=== PATIENT | female | born 1965 | race Caucasian/White ===

== ENCOUNTER 2018-02-15 09:43 | Outpatient (RCR) | payer MEDICAID, SELFPAY ==
--- NOTE | 2018-02-15 09:45 | COCO.VHC ---
New/Renewal Application Status: New Application Submitted?: Yes (01/31/18) Notes:: Patricia came in to apply for insurance because she is with out any. We applied online.
== END 2018-03-15 23:59 | disposition home or self-care (01) ==
LOC: COCO 09:43
PROVIDERS: PCP Internal Medicine; Visit Provider Internal Medicine

== ENCOUNTER 2025-01-22 08:50 | Outpatient (CLI) | payer MEDICAID, SELFPAY ==
--- NOTE | 2025-01-22 | DI.US_ITS ---
Exam(s) US PELVIS TRANSVAGINAL EXAM: US PELVIS TRANSVAGINAL CLINICAL HISTORY: pelvic mass,r19.00. TECHNIQUE: Transabdominal and transvaginal pelvic ultrasound was performed using standard protocol. COMPARISON: No exams were available for comparison FINDINGS: UTERUS: Position: Anteverted. Size: 5.7 long by 2.0 AP by 3.2 transverse cm Endometrium: Due to the size of the pelvic mass and displacement of the uterus, endometrial stripe cannot be well visualized in this patient. Cervix: Unremarkable. OVARIES: Distinct separate ovaries cannot be identified due to the large pelvic mass. CUL-DE-SAC: Free fluid: None. Other: There is a 9.0 x 8.3 x 9.7 cm cystic mass in the pelvis posterior to the uterus. There do appear to be some septations in the cyst along the left side. There is internal debris noted. There is no internal blood flow. IMPRESSION: 1. 9.0 x 8.3 x 9.7 cm complicated septated cystic pelvic mass. This may be ovarian in origin. Cystic ovarian neoplasm should be considered in this patient. MRI may be of use for further characterization. 2. Grossly unremarkable uterus. DATA REPOSITORY:
== END 2025-01-22 09:10 ==
LOC: DI 08:51
PROVIDERS: PCP Nurse Practitioner Family; Visit Provider Obstetrics & Gynecology
DX: R19.00 Intra-abdominal and pelvic swelling, mass and lump, unspecified site (principal)
CPT/HCPCS: 76830; 76856

== ENCOUNTER 2025-01-26 09:01 | Outpatient (REF) | payer MEDICAID, SELFPAY ==
--- NOTE | 2025-01-26 08:50 | PAPFT_PTH ---
PATIENT: Patricia Castellanos LOC: [facility] U#:[id number] AGE/SX: 59/F ROOM: RE01/26/[address]: Rosa Damon MD : 1965 BED: DIS: 01/26/2025 SPEC #: [id number] RECD: 01/26/25 11:41 STATUS: KAROLYNDon REBenjamin #: [id number] JOSÉ MIGUEL: 01/26/25 08:[address]: Rosa Damon DEPT: [facility] Cytology RECD BY: Jocelyn Guerra ENTERED: 01/26/25 11:41 SP TYPE: PAPFT OTHR DR: Sally Lancaster Tissues: 1 - CX/ENDOCX FOR PAP SMEARS Procedures: PAP THIN PREP/UVM Screening HPV DNA PROBE Comments: [id number] (HPV 16 & 18/45)
== END 2025-01-26 09:02 | disposition home or self-care (01) ==
LOC: LBN 09:01
PROVIDERS: PCP Nurse Practitioner Family; Visit Provider Obstetrics & Gynecology
DX: Z12.4 Encounter for screening for malignant neoplasm of cervix (principal)
CPT/HCPCS: 88142; 87624

== ENCOUNTER 2025-04-01 11:24 | Day surgery (SDC) | payer MEDICAID, SELFPAY ==
[2025-04-01 12:33] VITALS: BP 122/58; PULSE 83; RESP 16; TEMP 36.6; O2SAT 96
--- NOTE | 2025-04-01 12:40 | NUR.NOTE ---
pt with very flat affect , states that she has a DEL VALLE , not answering all questions. NNOYED TO BE sked the same questionsNursing Note:
[2025-04-01] MEDS: Lactated Ringers 1,000 ML 80 ML IV (12:51)
--- NOTE | 2025-04-01 13:22 | W.ANESPRE ---
General Info Date of Service Date Performed: 04/01/25 Height: 5 ft 7 in Weight: 68.5 kg Body Mass Index (BMI): 23.6 Surgical Procedure: Operation Date: 04/01/25 12:50 Proposed Procedure Side Surgeon p Colonoscopy Leila Esteban MD Meds Allergies and Home Medications Allergies Allergy/AdvReac Type Severity Reaction Status Date / Time codeine Allergy HIVES Verified 04/01/25 12:29 acetaminophen (From Vicodin) AdvReac VOMITING Verified 04/01/25 12:29 hydrocodone bitartrate (From AdvReac VOMITING Verified 04/01/25 12:29 Vicodin) Home Medication ?Medication ?Instructions ?Recorded loratadine 10 mg disintegrating 10 mg PO DAILY 02/14/13 tablet celecoxib 200 mg capsule (Celebrex) 200 mg PO BID 12/29/24 oxycodone 10 mg tablet 5 mg PO TID PRN Pain 12/29/24 lorazepam 0.5 mg tablet 0.5 mg PO DAILY PRN 02/25/25 montelukast 10 mg tablet 10 mg PO DAILY PRN 02/25/25 (Singulair) omeprazole 20 mg capsule,delayed 20 mg PO DAILY 02/25/25 release acetaminophen 500 mg capsule 1,000 mg PO TID 03/19/25 atorvastatin 40 mg tablet (Lipitor) 40 mg PO DAILY 03/19/25 bisacodyl 5 mg tablet,delayed 5 mg PO ONCE colonscopy bowel prep 03/19/25 release (Dulcolax (bisacodyl)) #4 tabs escitalopram oxalate 20 mg tablet 20 mg PO DAILY 03/19/25 (Lexapro) polyethylene glycol 3350 17 238 g PO ONCE colonoscopy prep 03/19/25 gram/dose oral powder #238 grams Current Visit Medications: Current Medications Generic Name Dose Route Start Last Admin Trade Name Freq PRN Reason Stop Dose Admin Ringer's Solution 1,000 mls @ 80 mls/hr 04/01/25 06:00 04/01/25 12:51 IV 04/01/25 23:59 80 mls/hr INFUSION POONAM Administration Sodium Chloride 0 ml 04/01/25 06:00 Normal Saline Flush 10 Ml Syr IV 04/01/25 23:59 PRN PRN Sodium Chloride 0 ml 04/01/25 06:00 Normal Saline 10 Ml Vial IJ 04/01/25 23:59 DIRECTED PRN Sterile Water 0 ml 04/01/25 06:00 Water,Injection,Sterile 10 Ml Vial IJ 04/01/25 23:59 DIRECTED PRN PFSH Active Problems Active Problems: Problem Status Onset Code Hot flashes due to menopause Acute N95.1 Pelvic mass Acute R19.00 Medical History Medical History Hyperlipidemia Anxiety Depression Migraine Anemia degenerative joint disease chronic back pain, L arm radiculopathy. 2008 [facility] C5-6 epidural inj. [address] [facility] Rx for Percocet TID. Flexeril and Gabapentin. Musculoskeletal pain fx R femur in skiing accident. has lumbar back pain and cervical radiculopathy. 04/2013 MRI neck - varying degree of cervical spinal canal and foraminal narrowing. Lumbar spine L5-S1 disk degeneration. No spinal stenosis. Tobacco use disorder wants to quit. no firm plan Menorrhagia Nl endometrial bx and sonohysterogram 02/201305/20/13 HTA endometrial ablation. Elevated lipids not taking meds Surgical History Surgical History Ligation of fallopian tube at time of c/s 1985 Total replacement of hip Pt. states she has NOT had a hip replacement.1075 pin and plate for fx femur R section x2 Endometrial Ablation D+C done at time of ablation - benign proliferative endometrium with nl endocervical tissue Tobacco Smoking/Tobacco Use Status: Current every day Tobacco Type: cigarettes Passive smoking exposure: Yes Alcohol Alcohol Intake: current Alcohol intake frequency: holidays/special occasions only Substance Use Substance use: Daily Substance use type: marijuana Prental History History 2 Para 2 Hx # Term Pregnancies Multiple births Hx # Pregnancies Ectopic pregnancies AB induced Hx Number of Living Children 1 AB spontaneous Past Pregnancies Del. Date GA/Weeks # Preg Succ Route Wgt Sex Labor Lgth Anesthesia Location Prov Compl 11/03/83 3401.943 g Female [place], [place] 11/13/85 2891.651 g Male [place], [place] Delivery Date: 11/13/85 Last Updated by: Rosa Damon MD Son in 2023 Vital Signs and Lab Results Vital Signs Most Recent Vital Signs in EMR: Most Recent Vital Signs Temp Pulse Resp BP Pulse Ox 36.6 C 83 16 122/58 L 96 04/01/25 12:33 04/01/25 12:33 04/01/25 12:33 04/01/25 12:33 04/01/25 12:33 Anesthesia Assessment and Plan Anesthesia History Personal History: No History of Anesthesia Complications Family History: No Family History of Anesthesia Complications Exercise Tolerance Exercise Tolerance: Metabolic Equivalents>4 Pertinent Negatives Pertinent Negatives: No Symptoms of GERD Cardiac & Pulmonary Exam Cardiac Exam: Normal S1/S2 Heart Sounds Pulmonary Exam: Clear Bilateral Breath Sounds Implantable Cardiac Device Does patient have a Pacemaker or an ICD?: No Airway Exam Known Difficult Airway: No Mallampati Class: 2 Mouth Opening: Normal (> 3cm) Thyromental Distance: Greater than 3 cm Neck Range of Motion: Full ROM Neck Circumference: Normal Teeth Condition: Normal Dentition ASA Classification ASA Score: ASA 2 Emergency Case?: No NPO Status NPO Status: NPO Clears >2 hours, Solids >8 hours Anesthesia Plan Resuscitation Status: Full Code Anesthesia Technique: General Anesthesia Airway Planned: Natural Airway Monitors Used: Standard Monitors
[2025-04-01 13:23] VITALS: BMI 23.6
--- NOTE | 2025-04-01 13:36 | ANES.PREOP_ITS ---
General Info Date of Service Date Performed: 04/01/25 Height: 5 ft 7 in Weight: 68.5 kg Body Mass Index (BMI): 23.6 Surgical Procedure: Operation Date: 04/01/25 12:50 Proposed Procedure Side Surgeon p Colonoscopy Leila Esteban MD Meds Allergies and Home Medications Allergies Allergy/AdvReac Type Severity Reaction Status Date / Time codeine Allergy HIVES Verified 04/01/25 12:29 acetaminophen (From Vicodin) AdvReac VOMITING Verified 04/01/25 12:29 hydrocodone bitartrate (From AdvReac VOMITING Verified 04/01/25 12:29 Vicodin) Home Medication ?Medication ?Instructions ?Recorded loratadine 10 mg disintegrating 10 mg PO DAILY 3 tablet celecoxib 200 mg capsule (Celebrex) 200 mg PO BID 12/15 09/07 oxycodone 10 mg tablet 5 mg PO TID PRN Pain 5 lorazepam 0.5 mg tablet 0.5 mg PO DAILY PRN 02/25/25 montelukast 10 mg tablet 10 mg PO DAILY PRN 02/25/25 (Singulair) omeprazole 20 mg capsule,delayed 20 mg PO DAILY release acetaminophen 500 mg capsule 1,000 mg PO TID 03/19/25 atorvastatin 40 mg tablet (Lipitor) 40 mg PO DAILY 08/08 bisacodyl 5 mg tablet,delayed 5 mg PO ONCE colonscopy bowel prep 03/19/25 release (Dulcolax (bisacodyl)) #4 tabs escitalopram oxalate 20 mg tablet 20 mg PO DAILY 03/19 (Lexapro) polyethylene glycol 3350 17 238 g PO ONCE colonoscopy prep 03/19/25 gram/dose oral powder #238 grams Current Visit Medications: Current Medications Generic Name Dose Route Start Last Admin Trade Name Freq PRN Reason Stop Dose Admin Ringer's Solution 1,000 mls @ 80 mls/hr 04/01/25 06:00 04/01/25 12:51 IV 04/01/25 23:59 80 mls/hr INFUSION POONAM Administration Sodium Chloride 0 ml 04/01/25 06:00 Normal Saline Flush 10 Ml Syr IV 04/01/25 23:59 PRN PRN Sodium Chloride 0 ml 04/01/25 06:00 Normal Saline 10 Ml Vial IJ 04/01/25 23:59 DIRECTED PRN Sterile Water 0 ml 04/01/25 06:00 Water,Injection,Sterile 10 Ml Vial IJ 04/01/25 23:59 DIRECTED PRN PFSH Active Problems Active Problems: Problem Status Onset Code Hot flashes due to menopause Acute N95.1 Pelvic mass Acute R19.00 Medical History Medical History Hyperlipidemia Anxiety Depression Migraine Anemia degenerative joint disease chronic back pain, L arm radiculopathy. 2008 [facility] [place] [facility] C5-6 epidural inj. [address] [facility] Rx for Percocet TID. Flexeril and Gabapentin. Musculoskeletal pain fx R femur in skiing accident. has lumbar back pain and cervical radiculopathy. 04/2013 MRI neck - varying degree of cervical spinal canal and foraminal narrowing. Lumbar spine L5-S1 disk degeneration. No spinal stenosis. Tobacco use disorder wants to quit. no firm plan Menorrhagia Nl endometrial bx and sonohysterogram 02/201305/20/13 HTA endometrial ablation. Elevated lipids not taking meds Surgical History Surgical History Ligation of fallopian tube at time of c/s 1985 Total replacement of hip Pt. states she has NOT had a hip replacement.1075 pin and plate for fx femur R section x2 Endometrial Ablation D+C done at time of ablation - benign proliferative endometrium with nl endocervical tissue Tobacco Smoking/Tobacco Use Status: Current every day Tobacco Type: cigarettes Passive smoking exposure: Yes Alcohol Alcohol Intake: current Alcohol intake frequency: holidays/special occasions only Substance Use Substance use: Daily Substance use type: marijuana Prental History History 2 Para 2 Hx # Term Pregnancies Multiple births Hx # Pregnancies Ectopic pregnancies AB induced Hx Number of Living Children 1 AB spontaneous Past Pregnancies Del. Date GA/Weeks # Preg Succ Route Wgt Sex Labor Lgth Anesth esia Location Prov [facility] 11/03/83 3401.943 g Female [place] 11/13/85 2891.651 g Male [facility] [place] Delivery Date: 11/13/85 Last Updated by: Rosa Damon MD Son in 2023 Vital Signs and Lab Results Vital Signs Most Recent Vital Signs in EMR: Most Recent Vital Signs Temp Pulse Resp BP Pulse Ox 36.6 C 83 16 122/58 L 96 04/01/25 12:33 04/01/25 12:33 04/01/25 12:33 04/01/25 12:33 04/01/25 12:33 Anesthesia Assessment and Plan Anesthesia History Personal History: No History of Anesthesia Complications Family History: No Family History of Anesthesia Complications Exercise Tolerance Exercise Tolerance: Metabolic Equivalents>4 Pertinent Negatives Pertinent Negatives: No Symptoms of GERD Cardiac & Pulmonary Exam Cardiac Exam: Normal S1/S2 Heart Sounds Pulmonary Exam: Clear Bilateral Breath Sounds Implantable Cardiac Device Does patient have a Pacemaker or an ICD?: No Airway Exam Known Difficult Airway: No Mallampati Class: 2 Mouth Opening: Normal (> 3cm) Thyromental Distance: Greater than 3 cm Neck Range of Motion: Full ROM Neck Circumference: Normal Teeth Condition: Normal Dentition ASA Classification ASA Score: ASA 2 Emergency Case?: No NPO Status NPO Status: NPO Clears >2 hours, Solids >8 hours Anesthesia Plan Resuscitation Status: Full Code Anesthesia Technique: General Anesthesia Airway Planned: Natural Airway Monitors Used: Standard Monitors
--- NOTE | 2025-04-01 14:32 | BOWEL_PTH ---
PATIENT: Patricia Castellanos LOC: [facility] U#:[id number] AGE/SX: 59/F ROOM: RE04/01/[address]: Leila Esteban : 1965 BED: DIS: 04/01/2025 SPEC #: [id number] RECD: 04/01/25 15:33 STATUS: CHIARA REBenjamin #: [id number] JOSÉ MIGUEL: 04/01/25 14:[address]: Leila Esteban DEPT: Surgical Specimen RECD BY: Tahira Richardson ENTERED: 04/01/25 15:35 SP TYPE: Bowel OTHR DR: Sally Lancaster Tissues: 1 - BIOPSY BOWEL 2 - BIOPSY BOWEL 3 - BIOPSY BOWEL 4 - BIOPSY BOWEL Procedures: GROSS AND MICRO LEVEL 4 Comments: [id number]
[2025-04-01 14:47] VITALS: BP 107/52; PULSE 75; RESP 16; TEMP 36.4; O2SAT 94
--- NOTE | 2025-04-01 14:48 | W.PM.DSUDISC ---
Date of service: 04/01/25 Discharge Plan Disposition Patient Disposition: Home Condition: Good Discharge Details Reason For Visit: Screening colonoscopy Attending Provider: Leila Esteban Primary Care Provider: Sally Lancaster Recommendations for Follow Up Recommended tests to be ordered by follow up provider: Follow up pathology Home Meds and New Rx's Prescriptions: Continued celecoxib [Celebrex] 200 mg capsule 200 mg PO BID oxycodone 10 mg tablet 5 mg PO TID PRN (Reason: Pain) Patient Comments: Pt takes BID usually acetaminophen 500 mg capsule 1,000 mg PO TID escitalopram oxalate [Lexapro] 20 mg tablet 20 mg PO DAILY atorvastatin [Lipitor] 40 mg tablet 40 mg PO DAILY loratadine 10 MG tablet,disintegrating 10 mg PO DAILY lorazepam 0.5 mg tablet 0.5 mg PO DAILY PRN omeprazole 20 mg capsule,delayed release(DR/EC) 20 mg PO DAILY montelukast [Singulair] 10 mg tablet 10 mg PO DAILY PRN Discontinued bisacodyl [Dulcolax (bisacodyl)] 5 mg tablet,delayed release (DR/EC) 5 mg PO ONCE Qty: 4 0RF Rx Instructions: take per colonoscopy instructions polyethylene glycol 3350 17 gram/dose powder 238 g PO ONCE Qty: 238 0RF Rx Instructions: take per colonoscopy instructions Discharge Instructions Instructions: Colon polyps Additional Instructions: Your colonoscopy went well today. You did have a few small polyps which were removed and will be sent to pathology. We will reach out to you once we get the results of these polyps back and make recommendations for when to have a repeat colonoscopy. If you have any questions or concerns please contact the general surgery office. 1. If tolerated, consume a soft, low fiber diet for 1-2 days. 2[address] Do not drive, drink alcohol, operate machinery, make critical decisions, or do activities that require coordination or balance for 24 hours. 3. Because air was put into your colon during the procedure, expelling air from your rectum (passing gas or farting) is normal. 4. You may not have a bowel movement for 1-3 days because of the colonoscopy prep. This is normal. 5. Go directly to the emergency room if you notice any of the following: Develop chills (warm to touch), or if you have a thermometer and your temperature is above 101 Difficulty breathing or difficultly swallowing Persistent vomiting Severe abdominal pain, other than gas cramps Severe chest pain Black, tarry stools Any bleeding ? exceeding one tablespoon 6. Call your physician if the site where your intravenous was started becomes red, swollen, painful, and warm to touch. 7. Your physician has reviewed your pre-procedure medications. Please continue to take those medications as previously ordered. You will be given specific information/education regarding any changes to your medications before leaving. Stand Alone Forms: Anesthesia Discharge Inst., Oneyda Santos (DSU), Portal Information Activity:: Activity as Tolerated Diet:: As Tolerated Discharge Orders Discharge Orders: Discharge Order (Routine); Ordered 04/01/25 Ordered By: Leila Esteban
--- NOTE | 2025-04-01 14:50 | COLE_ITS ---
Date of service: 04/01/25 Time of Service: 14:50 Colonoscopy Report Date of procedure: 04/01/25 Pre-op diagnosis general: Screening colonoscopy Post-op diagnosis procedure note: other (Colon polyps ) Procedure: Colonoscopy with polypectomy Surgeon: Leila Esteban Anesthesia Type: General:No Airway Estimated blood loss (mL): 1 Pathology: other (Polyp at 100cm, polyp at 45cm, 2 polyps at 25cm, multiple rectal polyps) Complications: None Disposition: PACU Indications: Patient is a 59-year-old female who presents for her first screening colonoscopy. She does have evidence of a pelvic masses and undergoing a upcoming gynecologic procedure for which they wanted a colonoscopy prior. She denies any changes in her bowel habits. Prep: Miralax/Dulcolax Procedure Start Time: 14:24 Procedure End Time: 14:30 Retraction Time: 14:44 Findings: Evidence of multiple small polyps removed with cold forceps biopsy. Internal hemorrhoids. Otherwise normal colonoscopy. Procedure Description: The patient was brought to the endoscopy suite and placed in the left lateral decubitus position. After induction of IV sedation, a digital rectal exam was performed.. Digital exam was normal. The colonoscope was then passed to the cecum without difficulty. Cecal intubation was confirmed by the identification of the appendiceal orifice and the ileocecal valve. Upon withdrawing the colonoscope, all mucosal surfaces were inspected. The prep was noted to be adequate. At 100cm, 45cm, 25cm and in the rectum, there were small (<5mm) polyps, which were removed using cold forceps in their entirety. Specimens were retrieved for pathological analysis. There was no other evidence of mucosal abnormality, polyp or cancer. Retroflexion in the rectum showed evidence of internal hemorrhoids. The patient tolerated the procedure well with no compli cations. Postoperatively, the patient was transferred to the recovery room in stable condition. [place] Bowel Prep [place] Bowel Prep Right Colon: 3 Left Colon: 3 Transverse Colon: 3 Total Score: 9
[2025-04-01 15:10] VITALS: BP 105/58; PULSE 70; RESP 16; TEMP 36.4; O2SAT 94
--- NOTE | 2025-04-01 17:39 | W.ANESPOSTOP ---
Postoperative Evaluation Date, Time and Location Date Performed: 04/01/25 Time Performed: 17:39 Patient Location: Day Surgery Unit Vital Signs Most Recent Imported Vital Signs: Most Recent Vital Signs Temp Pulse Resp BP Pulse Ox 36.4 C L 70 16 105/58 L 94 04/01/25 15:10 04/01/25 15:10 04/01/25 15:10 04/01/25 15:10 04/01/25 15:10 Pain Score Most Recent Pain Score: Most Recent Pain Score Pain Level 0 04/01/25 15:10 Assessment Mental Status: Awake (Alert & Oriented to Patient Baseline) Airway and Respiratory Function: Patent airway with normal (patient baseline) respiratory exam Cardiovascular Function: Hemodynamically Stable Hydration Status: Adequately Hydrated Nausea & Vomiting: No Nausea or Vomiting Pain: Pt. Denies Any Pain Peripheral Nerve Block: Patient did not receive a nerve block
== END 2025-04-01 15:18 | disposition home or self-care (01) ==
PROVIDERS: PCP Nurse Practitioner Family; Visit Provider Student in an Organized Health Care Education/Training Program
PROC: 0DJD8ZZ Inspection of Lower Intestinal Tract, Via Natural or Artificial Opening Endoscopic (ICD-10-PCS; CPT 45378; principal; 2025-04-01 12:45)
DX: Z12.11 Encounter for screening for malignant neoplasm of colon (principal); K62.1 Rectal polyp; K63.5 Polyp of colon
CPT/HCPCS: 45380; 88305; J2003; J2704